=== PATIENT | female | born 1935 | race Caucasian/White ===

== ENCOUNTER 2025-06-07 11:16 | Outpatient (CLI) | payer MEDICARE | END 2025-06-07 11:17 | disposition home or self-care (01) | LOC: RAD 11:16 | PROVIDERS: ATTEND Family Medicine | DX: M79.605 Pain in left leg (principal); M47.816 Spondylosis without myelopathy or radiculopathy, lumbar region; M11.262 Other chondrocalcinosis, left knee; M17.12 Unilateral primary osteoarthritis, left knee | CPT/HCPCS: 72100 ==